=== PATIENT | male | born 1950 | race Caucasian/White ===

== ENCOUNTER 2021-03-14 14:08 | Inpatient (IN) | payer MEDICARE, OTHER ==
[~2021-03-14] VITALS: Ht 170.2 cm; Wt 78.7 kg
[2021-03-14] MEDS ORDERED: FURO20TA2 PO (14:19)
[2021-03-14] MEDS ORDERED: TRAZ-252 PO (14:19)
[2021-03-14] MEDS ORDERED: SING4CHW9 PO (14:19)
[2021-03-14] MEDS ORDERED: PRAV10TA3 PO (14:19)
[2021-03-14] MEDS ORDERED: SPIR100T3 PO (14:19)
[2021-03-14] MEDS ORDERED: HYDR-643 PO (14:19)
[2021-03-14] MEDS ORDERED: NADO20TA PO (14:19)
[2021-03-14] MEDS ORDERED: CITA20TA6 PO (14:19)
[2021-03-14] MEDS ORDERED: PANT20TA6 PO (14:19)
[2021-03-14] MEDS ORDERED: ACETAMINOPHEN TAB 650MG DOSE (2X325MG) PO ONE (15:10)
[2021-03-14 15:24] LABS: HEMATOCRIT 29.6 % (42.0-52.0); HEMOGLOBIN 8.6 g/dl (13.5-17.5); MEAN CORPUSCULAR HEMOGLOBIN 21.4 pg (27.0-33.0); MEAN CORPUSCULAR HGB CONC 29.1 g/dl (32.0-36.5); MEAN CORPUSCULAR VOLUME 73.6 fl (80.0-96.0); RED BLOOD COUNT 4.02 10^6/uL (4.30-6.10); WHITE BLOOD COUNT 3.9 10^3/uL (4.0-10.0)
--- NOTE | 2021-03-14 15:41 | REP ---
INDICATION: 70yo M GLF, landed on side, doesn't think he struck head COMPARISON: None. TECHNIQUE: Axial noncontrast images from the skull base to the thoracic inlet with coronal reformations. This CT examination was performed using the following dose reduction techniques: Automated exposure control, adjustment of mA and/or kv according to the patient's size, and use of iterative reconstruction technique. FINDINGS: Atrophy with periventricular leukomalacia and microvascular ischemic changes are appreciated. The ventricles and sulci are symmetric. Hugo-white differentiation is maintained. There is no evidence for acute intracranial hemorrhage, mass/mass effect, pathology or infarction. No extra-axial fluid collection. Calvarium is intact. Paranasal sinuses and mastoid air cells are clear. IMPRESSION: Atrophy and microvascular ischemic changes. No acute intracranial hemorrhage, infarction, or mass/mass effect. <Electronically signed by Brendan Johnson > 03/14/21 [id number]
[2021-03-14 15:46] LABS: CALCIUM LEVEL 9.9 MG/DL (8.8-10.2); CREATININE FOR GFR 1.75 MG/DL (0.70-1.30); GLOMERULAR FILTRATION RATE 41.2 (>42)
--- NOTE | 2021-03-14 15:46 | REP ---
INDICATION: 70yo M GLF, now w/ L sided rib pain, TTP, eval for rib fx COMPARISON: None TECHNIQUE: Axial noncontrast images from the thoracic inlet to the upper abdomen with coronal and sagittal reformations. This CT examination was performed using the following dose reduction techniques: Automated exposure control, adjustment of mA and/or kv according to the patient's size, and use of iterative reconstruction technique. FINDINGS: The bilateral lung thornton are well aerated and essentially clear. No consolidation/contusion, effusion, or pneumothorax. Tracheobronchial tree is patent. The mediastinum demonstrates large paraesophageal gastric hiatal hernia. No significant adenopathy. Age-related atherosclerotic changes to the thoracic aorta and coronary arteries noted without aortic aneurysm or cardiomegaly. No pericardial effusion. There is no evidence for acute rib fracture. Few old healed right rib fractures are identified Sagittal images demonstrate mild compression deformities involving T6 and T9 of indeterminate age. IMPRESSION: No acute mediastinal or pleuroparenchymal trauma/injury or acute pathology. Moderate to large paraesophageal gastric hiatal hernia No evidence for acute rib fracture. Mild compression deformities at T6 and T9 of indeterminate age. <Electronically signed by Brendan Johnson > 03/14/21 [id number]
[2021-03-14 15:51] LABS: PLATELET COUNT, AUTOMATED 66 10^3/uL (150-450)
[2021-03-14] MEDS ORDERED: NS 1,000 ML IV ONE (16:40)
[2021-03-14 16:54] LABS: LYMPH % 11.8 % (24.0-44.0); NEUTROPHILS % 75.1 % (36.0-66.0)
[2021-03-14 16:55] LABS: BASO % 0.5 % (0.0-1.0); EOS # 0.1 10^3/uL (0.0-0.5); LYMPH # 0.5 10^3/uL (1.5-5.0); MONO # 0.4 10^3/uL (0.0-0.8); MONO % 10.3 % (2.0-8.0)
--- NOTE | 2021-03-14 16:59 | ECGEPIP ---
[facility] - ED Test Date: 2021-03-14 Pat Name: HUMBERTO CROSS Department: Room: - Gender: Male Patient Representative: LR : 1950 Requested By: AMULIK Harper Order Number: [id number] Reading MD: Cara Herrera Measurements Intervals [place] Rate: 42 P: 85 MN: 148 QRS: 42 QRSD: 100 T: 48 QT: 488 QTc: 407 Interpretive Statements Marked sinus bradycardia Low voltage QRS Septal infarct , age undetermined NSTTW abnormalities No prior Electronically Signed on 03-14-2021 16:59:29 EST by Cara Herrera
[2021-03-14 17:05] LABS: ALBUMIN 3.7 GM/DL (3.2-5.2); BILIRUBIN,DIRECT 0.2 MG/DL (0.0-0.2); BILIRUBIN,TOTAL 0.6 MG/DL (0.2-1.0); THYROID STIMULATING HORMONE 2.96 uIU/ML (0.358-3.740); TOTAL PROTEIN 7.5 GM/DL (6.4-8.2)
[2021-03-14 17:20] LABS: CHLORIDE,RANDOM URINE < 10 MEQ/L; CREATININE,RANDOM URINE 70.1 MG/DL; SODIUM,RANDOM URINE 17 MEQ/L
[2021-03-14 17:21] LABS: INR 1.27; PROTHROMBIN TIME 16.3 SECONDS (12.7-14.5)
[2021-03-14 17:22] LABS: PARTIAL THROMBOPLASTIN TIME 35.9 SECONDS (25.9-37.0)
[2021-03-14 17:29] LABS: CK-MB VALUE MASS < 1.0 NG/ML (<3.6); CPK CREATINE PHOSPHOKINASE 71 U/L (39-308); MB/CK RELATIVE INDEX 1.41 (< OR =4)
[2021-03-14 17:40] LABS: RSV AMPLIFICATION NEGATIVE (NEGATIVE)
--- NOTE | 2021-03-14 18:31 | HPEPDOC ---
[facility] Medical History & Physical Date of Admission Mar 14, 2021 Date of Service: Mar 14, 2021 History and Physical CHIEF COMPLAINT: "Chest pain" HISTORY OF PRESENT ILLNESS: 70-year-old male with a past medical history of alcoholic cirrhosis, anemia, thrombocytopenia, spleen infarction, COPD, obstructive sleep apnea, diabetes mellitus, GERD, hypertension presented to the emergency room department with complaints of left-sided chest pain. He is a poor historian and was accompanied by his son. Son reports patient fell on Thanksgiving, which was unwitnessed and unclear why and since has been complaining of left-sided chest pain that is reproducible with movement. When asked patient about chest pain, he could not identify any aggravating factors but physically showed moving his left arm which aggravated the pain as well as palpating over the fifth midclavicular rib region. He could not recollect events around the fall. At this junction, he denied shortness of breath, abdominal pain, nausea, vomiting, problems with urination or bowel movements. In the emergency room department he was noted to have WBC count of 3.9, hemoglobin of 8.6, platelet count of 66. His sodium was 128, BUN/creatinine was 44/1.75. He was admitted for a chest pain rule out as well as pancytopenia acute kidney injury. PAST MEDICAL HISTORY: As above PAST SURGICAL HISTORY: Patient or son could recall SOCIAL HISTORY: Past drinker. Denies smoking and recreational drug use FAMILY HISTORY: Could not recall ALLERGIES: Please see below. REVIEW OF SYSTEMS: 10 point review of system was negative except for what is noted in the HPI HOME MEDICATIONS: Please see below. PHYSICAL EXAMINATION: VITAL SIGNS: Please see below General: Lying in bed, no acute distress Head/Neck/Throat: Trachea midline, mucous membranes moist Eyes: Sclera anicteric, no erythema or discharge appreciated bilaterally Thorax: Normal respiratory effort on room air, lungs clear to auscultation bilaterally, no wheezes/rales/rhonchi Cardiovascular: Normal rate, regular rhythm, normal S1, S2; no S3, S4, rubs/gallops/murmurs Abdomen: Bowel sounds present, soft/nontender/nondistended Genitourinary: No CVA tenderness, no Ryan in place Musculoskeletal: Moving all extremities, no edema Skin: Warm, dry Neurologic: Awake, alert, oriented to self, place. He is forgetful and unable to call recent events. LABORATORY DATA: See below. IMAGING: Please see imaging section MICROBIOLOGY: Please see below. ASSESSMENT/PLAN: 70-year-old male presented emergency department with complaints of reproducible chest pain following a fall. He was admitted for further work-up of his abnormal lab work. #Atypical chest pain -EKG showed sinus bradycardia. Initial troponin was negative, continue to trend. #Fall -Unclear etiology; ?bradycardia while on bb. Continue to monitor on tele. Follow up on echocardiogram. Pt/ot. #Pancytopenia -Unknown baseline, suspect this is secondary to his underlying cirrhosis. continue to monitor for stability. No indications for transfusions of prbc or platelets at this time. #Acute kidney injury -Unknown baseline creatinine. However, suspect hepatorenal syndrome. Avoid nephrotoxic medications including furosemide and spironolactone; until baseline creatinine is established. Follow-up on renal ultrasound #Electrolyte abnormalities -Slightly hyponatremic, likely due to his underlying cirrhosis and being on diuretics. IV fluid appears to be on the dry side. #Cirrhosis -Continue lactulose. Hold furosemide and spironolactone tonight to ensure renal function remained stable. #Hyperammonemia -As per son, patient is baseline. Continue with lactulose titrate to 3 bowel movements per day. #Sinus bradycardia -Continue monitor on telemetry as well as clinically for symptoms. Nadolol dose may need to be reduced on d/c. #COPD -No signs of acute exacerbation. Reviewing medication list, patient is only taking montelukast. #DVT prophylaxis -Heparin subcu Vital Signs Vital Signs Date Time Temp Pulse Resp B/P (MAP) Pulse Ox O2 Delivery O2 Flow Rate FiO2 03/14/21 17:08 46 100 Room Air 03/14/21 14:08 97.8 20 105/46 (65) Laboratory Data Labs 24H Laboratory Tests 2 03/14/21 14:54: Immature Granulocyte % (Auto) 0.3, Neutrophils (%) (Auto) 75.1H, Lymphocytes (%) (Auto) 11.8L, Monocytes (%) (Auto) 10.3H, Eosinophils (%) (Auto) 2.0, Basophils (%) (Auto) 0.5, Neutrophils # (Auto) 3.0, Lymphocytes # (Auto) 0.5L, Monocytes # (Auto) 0.4, Eosinophils # (Auto) 0.1, Basophils # (Auto) 0.0, Immature Granulocyte # (Auto) 0.0, Nucleated Red Blood Cells % (auto) 0.0, Platelet Estimate , Immature Platelet Fraction 7.1, Anion Gap 8, Glomerular Filtration Rate 41.2L, Calcium Level 9.9, Total Bilirubin 0.6, Direct Bilirubin 0.2, Aspartate Amino Transf (AST/SGOT) 17, Alanine Aminotransferase (ALT/SGPT) 22, Alkaline Phosphatase 76, Total Protein 7.5, Albumin 3.7, Albumin/Globulin Ratio 1.0, Thyroid Stimulating Hormone (TSH) 2.960 03/14/21 16:33: Prothrombin Time 16.3H, Prothromb Time International Ratio 1.27, Activated Partial Thromboplast Time 35.9, Ammonia 36H, Total Creatine Kinase 71, Creatine Kinase MB < 1.0, Creatine Kinase MB Relative Index 1.41, Troponin I High Sensitivity 8.0 03/14/21 16:51: Urine Random Creatinine 70.1, Urine Random Sodium 17, Urine Random Chloride < 10 03/14/21 16:56: Coronavirus (COVID-19)(PCR) NEGATIVE, Influenza Type A (RT-PCR) NEGATIVE, Influenza Type B (RT-PCR) NEGATIVE, Respiratory Syncytial Virus (PCR) NEGATIVE CBC/BMP Laboratory Tests 03/14/21 14:54 Home Medications Scheduled Citalopram Hydrobromide (Citalopram HBr) 20 Mg Tablet, 20 MG PO DAILY Furosemide (Furosemide) 40 Mg Tablet, 40 MG PO DAILY Montelukast Sodium (Montelukast Sodium) 10 Mg Tablet, 10 MG PO QHS Multivit,Calc,Mins/Iron/Folic (Thera-M Tablet) 1 Each Tablet, 1 TAB PO DAILY Nadolol (Nadolol) 40 Mg Tablet, 40 MG PO DAILY Pantoprazole Sodium (Pantoprazole Sodium) 40 Mg Tablet.dr, 40 MG PO BID Pravastatin Sodium (Pravastatin Sodium) 40 Mg Tablet, 40 MG PO QHS Spironolactone (Spironolactone) 100 Mg Tablet, 100 MG PO DAILY Trazodone HCl (Trazodone HCl) 150 Mg Tablet, 150 MG PO QHS Scheduled PRN Hydroxyzine HCl (Hydroxyzine HCl) 10 Mg Tablet, 20 MG PO TID PRN for ITCHING Lactulose (Lactulose) 10 Gm/15 Ml Solution, 20 ML PO BID PRN for CONSTIPATION Allergies Coded Allergies: cephradine (Verified Allergy, Unknown, 03/14/21) A-FIB/CHADSVASC A-FIB History Current/History of A-Fib/PAF?: No ADAM BERGER M.D. Mar 14, 2021 18:31
[2021-03-14] MEDS: NS 1,000 ML IV SCH (19:00)
--- OUTSIDE RECORDS SUMMARY | 2021-03-14 19:03 | CCD ---
Author Author [facility] Organization [facility] Address Unknown Phone Unavailable Care Team Providers Care Order Schedule Clerk Name Role Phone JAMI HOLM J KAYLEE PA-C Unavailable Unavailable PICKERAL JR, J KAYLEE PA-C Unavailable Unavailable PICKERAL JR, J KAYLEE PA-C Unavailable Unavailable PICKERAL JR, J KAYLEE PA-C Unavailable Unavailable PICKERAL JR, J KAYLEE PA-C Unavailable Unavailable PICKERAL JR, J KAYLEE PA-C Unavailable Unavailable PICKERAL JR, J KAYLEE PA-C Unavailable Unavailable PICKERAL JR, J KAYLEE PA-C Unavailable Unavailable PICKERAL JR, J KAYLEE PA-C Unavailable Unavailable PICKERAL JR, J KAYLEE PA-C Unavailable Unavailable PICKERAL JR, J KAYLEE PA-C Unavailable Unavailable PICKERAL JR, J KAYLEE PA-C Unavailable Unavailable PICKERAL JR, J KAYLEE PA-C Unavailable Unavailable PICKERAL JR, J KAYLEE PA-C Unavailable Unavailable PICKERAL JR, J KAYLEE PA-C Unavailable Unavailable PICKERAL JR, J KAYLEE PA-C Unavailable Unavailable PICKERAL JR, J KAYLEE PA-C Unavailable Unavailable PICKERAL JR, J KAYLEE PA-C Unavailable Unavailable PICKERAL JR, J KAYLEE PA-C Unavailable Unavailable PICKERAL JR, J KAYLEE PA-C Unavailable Unavailable PICKERAL JR, J KAYLEE PA-C Unavailable Unavailable PICKERAL JR, J KAYLEE PA-C Unavailable Unavailable PICKERAL JR, J KAYLEE PA-C Unavailable Unavailable PICKERAL JR, J KAYLEE PA-C Unavailable Unavailable PICKERAL JR, J KAYLEE PA-C Unavailable Unavailable PICKERAL JR, J KAYLEE PA-C Unavailable Unavailable PICKERAL JR, J KAYLEE PA-C Unavailable Unavailable Re-disclosure Warning The records that you are about to access may contain information from federally-assisted alcohol or drug abuse programs. If such information is present, then the following federally mandated warning applies: This information has been disclosed to you from records protected by federal confidentiality rules (42 CFR part 2). The federal rules prohibit you from making any further disclosure of this information unless further disclosure is expressly permitted by the written consent of the person to whom it pertains or as otherwise permitted by 42 CFR part 2. A general authorization for the release of medical or other information is NOT sufficient for this purpose. The Federal rules restrict any use of the information to criminally investigate or prosecute any alcohol or drug abuse patient.The records that you are about to access may contain highly sensitive health information, the redisclosure of which is protected by Article 27-F of the [facility] Public Health law. If you continue you may have access to information: Regarding HIV / AIDS; Provided by facilities licensed or operated by the [facility] Office of Mental Health; or Provided by the [facility] Office for People With Developmental Disabilities. If such information is present, then the following [facility] mandated warning applies: This information has been disclosed to you from confidential records which are protected by state law. State law prohibits you from making any further disclosure of this information without the specific written consent of the person to whom it pertains, or as otherwise permitted by law. Any unauthorized further disclosure in violation of state law may result in a fine or correction sentence or both. A general authorization for the release of medical or other information is NOT sufficient authorization for further disc losure. Encounters Encounter Providers Location Date Indications Data Source(s ) Outpatient Attender: KAYLEE simental 03/14/2021 08:25:00 AM EST [facility] ([facility], [facility]) Medications Medication Brand Name Start Date Product Form Dose Route Admi nistrative Instructions Pharmacy Instructions Status Indications Reaction Description Data Source(s) 240 mcg/0.7 mL 02/07/2021 12:00:00 AM EDT syringe 0 DIRECTED LEFT ARM DIRECTED LEFT ARM SOLD: 02/07/2021 [facility] Insurance Providers Payer name Policy type / Coverage type Policy ID Covered democrat ID Covered democrat's relationship to alfaro Policy Alfaro Plan Information FOR LIFE [id number] SP [id number] MEDICARE [id number] [facility] [id number] SP [id number] DO NOT USE [id number] SP [id number] Problems, Conditions, and Diagnoses No Information Surgeries/Procedures Procedure Description Date Indications Data Source(s) ECG ROUTINE ECG W/LEAST 12 LDS W/I&R 03/14/2021 12:00: 00 AM EST [facility] ([facility], [facility]) OFFICE OUTPATIENT NEW 45 MINUTES 03/14/2021 12:00:00 A M EST [facility] ([facility] [place], [facility]) Results ID Date Data Source [id number] 02/24/2021 12:00:00 AM EST [facility] Name Value Range Interpretation Code Description Data Abigail rce(s) Supporting Document(s) SARS-CoV2 Rapid Antigen Negative [facility] This lab was ordered by [facility] and reported by [facility] [place]. Procedure Social History No Information Vital Signs ID Date Data Source UNK Name Value Range Interpretation Code Description Data Source(s) Systolic blood pressure 118 mm[Hg] 118 mm[Hg] [facility] ([facility] [place], [facility]) Diastolic blood pressure 62 mm[Hg] 62 mm[Hg] [facility] ([facility], [facility]) Heart rate 40 /min 40 /min [facility] ([facility] [place], [facility]) Respiratory rate 16 /min 16 /min [facility] ( [facility], [facility]) Oxygen saturation in Arterial blood by Pulse oximetry 98 % 98 % [facility] ([facility], [facility]) Body temperature 98.2 [degF] 98.2 [degF] [facility] ([facility], [facility]) Body weight 157.00 [lb_av] 157.00 [lb_av] [facility] ([facility], [facility]) Body height 68 [in_i] 68 [in_i] [facility] ([facility], [facility]) 5'8" Body mass index (BMI) [Ratio] 23.9 kg/m2 23.9 k g/m2 [facility] ([facility], [facility])
[2021-03-14] MEDS ORDERED: FURO40TA2 PO (19:08)
[2021-03-14] MEDS ORDERED: TRAZ1TAB14 PO (19:08)
[2021-03-14] MEDS ORDERED: MONT10TA10 PO (19:08)
[2021-03-14] MEDS ORDERED: LACT20EL PO (19:08)
[2021-03-14] MEDS ORDERED: PRAV40TA2 PO (19:08)
[2021-03-14] MEDS ORDERED: NADO40TA PO (19:08)
[2021-03-14] MEDS ORDERED: PANT-23 PO (19:08)
[2021-03-14] MEDS ORDERED: THERTAB21 PO (19:08)
[2021-03-14] MEDS ORDERED: HOME MED LIST COMPLETE! XX SCH (19:10)
[2021-03-14] MEDS ORDERED: PRAVASTATIN 10 MG TAB PO SCH (21:00)
[2021-03-14] MEDS ORDERED: LACTULOSE 20 GM/30 ML SYRUP UD PO SCH (21:00)
[2021-03-14] MEDS ORDERED: hydrOXYzine 10 MG TAB PO SCH (21:00)
[2021-03-14] MEDS ORDERED: traZODone 50 MG TAB PO SCH (21:00)
[2021-03-14] MEDS: DICLOFENAC EPOLAMINE 1.3 % PATCH TOP SCH (21:00)
[2021-03-14] MEDS: LACTULOSE 20 GM/30 ML SYRUP UD PO SCH (21:19)
[2021-03-14] MEDS: traZODone 50 MG TAB PO SCH (21:20)
[2021-03-14] MEDS: PANTOPRAZOLE 40MG TAB (PROTONIX) PO SCH (21:20)
[2021-03-14] MEDS: PRAVASTATIN 20 MG TAB PO SCH (21:21)
[2021-03-14] MEDS ORDERED: HEPARIN SOD (PORCINE) 5000UNITS/ML 1ML VIAL/SYRINGE SC SCH (22:00)
[2021-03-15 07:17] LABS: HEMATOCRIT 26.8 % (42.0-52.0); HEMOGLOBIN 7.6 g/dl (13.5-17.5); MEAN CORPUSCULAR HEMOGLOBIN 21.3 pg (27.0-33.0); MEAN CORPUSCULAR HGB CONC 28.4 g/dl (32.0-36.5); MEAN CORPUSCULAR VOLUME 75.1 fl (80.0-96.0); RED BLOOD COUNT 3.57 10^6/uL (4.30-6.10); WHITE BLOOD COUNT 2.2 10^3/uL (4.0-10.0)
[2021-03-15 07:25] LABS: PLATELET COUNT, AUTOMATED 52 10^3/uL (150-450)
[2021-03-15] MEDS: NS 1,000 ML IV SCH ×2 (07:27→23:48)
[2021-03-15 07:42] LABS: ALBUMIN 3.3 GM/DL (3.2-5.2); BILIRUBIN,TOTAL 0.5 MG/DL (0.2-1.0); CALCIUM LEVEL 9.8 MG/DL (8.8-10.2); CREATININE FOR GFR 1.53 MG/DL (0.70-1.30); GLOMERULAR FILTRATION RATE 48.1 (>42); MAGNESIUM LEVEL 2.4 MG/DL (1.8-2.4); PHOSPHORUS LEVEL 3.2 MG/DL (2.5-4.9); POTASSIUM SERUM 4.7 MEQ/L (3.5-5.1); TOTAL PROTEIN 6.7 GM/DL (6.4-8.2)
[2021-03-15 07:46] LABS: FERRITIN 14 NG/ML (26-388); IRON (FE) 14 UG/DL (65-175); PERCENT SATURATION 3.1 % (19.7-50.0); TOTAL IRON BINDING CAPACITY 454 UG/DL (250-450)
[2021-03-15 08:06] LABS: INR 1.31; PROTHROMBIN TIME 16.7 SECONDS (12.7-14.5)
--- NOTE | 2021-03-15 08:06 | REP ---
INDICATION: sedrick COMPARISON: None TECHNIQUE: Real time roberto scale ultrasound examination using curved array transducer. FINDINGS: Bilateral kidneys are normal in contour, size, echogenicity, and reniform shape. No hydronephrosis, nephrolithiasis, cystic or renal mass lesion. No perinephric fluid collection. Bladder is grossly unremarkable. Right kidney measures 9.6 x 5.5 x 5.7 cm. Left kidney measures 10.1 x 5.0 x 4.4 cm. IMPRESSION: 1. Normal renal ultrasound. No hydronephrosis. <Electronically signed by Brendan Johnson > 03/15/21 0802
[2021-03-15 08:07] LABS: PARTIAL THROMBOPLASTIN TIME 40.4 SECONDS (25.9-37.0)
[2021-03-15] MEDS ORDERED: FUROSEMIDE 20 MG TAB PO SCH (09:00)
[2021-03-15] MEDS ORDERED: SPIRONOLACTONE 50 MG TAB PO SCH (09:00)
[2021-03-15] MEDS ORDERED: PANTOPRAZOLE 20 MG TAB PO SCH (09:00)
[2021-03-15] MEDS: LACTULOSE 20 GM/30 ML SYRUP UD PO SCH ×5 (09:00→20:23)
[2021-03-15] MEDS: PANTOPRAZOLE 40MG TAB (PROTONIX) PO SCH ×2 (09:11→20:23)
[2021-03-15] MEDS: MULTIVITAMINS/MINERALS THERAP 1 TAB PO SCH (09:11)
[2021-03-15] MEDS: CitaloPRAM (CeleXA) 20 MG TAB PO SCH (09:11)
[2021-03-15] MEDS: MONTELUKAST 10 MG TAB PO SCH (09:11)
[2021-03-15] MEDS ORDERED: IRON SUCROSE 100MG 5ML VIAL (J1756 PER 1MG) IV ONE (09:25)
--- NOTE | 2021-03-15 09:55 | IPNPDOC ---
Text Note Date of Service The patient was seen on 03/15/21. NOTE Subjective: 70-year-old male presented emergency room department with complaints of atypical chest pain. However, he was noted to be pancytopenic and have kidney injury and therefore was admitted for further work-up. Patient was seen and examined at bedside this morning. He reported having pain over the left chest wall which is reproducible with movement, however it is i ntermittent. Overnight, patient had no significant events on telemetry. Review of systems: 10 point review of system was negative except for what is noted in the HPI Physical exam: General: Lying in bed, no acute distress Head/Neck/Throat: Trachea midline, mucous membranes moist Eyes: Sclera anicteric, no erythema or discharge appreciated bilaterally Thorax: Normal respiratory effort on room air, lungs clear to auscultation bilaterally, palpation of left chest wall elicits tenderness Cardiovascular: Normal rate, regular rhythm, normal S1, S2; no S3, S4, rubs/gallops/murmurs Abdomen: Bowel sounds present, soft/nontender/nondistended Genitourinary: No CVA tenderness, no Ryan in place Musculoskeletal: Moving all extremities, no edema Skin: Warm, dry Neurologic: Awake, alert, oriented to self, place. He is forgetful and unable to call recent events. Labs: See below Imaging: Please see imaging section Assessment/plan: #Atypical chest pain -EKG showed sinus bradycardia. Troponin trend has been negative. Musculoskeletal in nature. #Fall -Unclear etiology; ?bradycardia while on bb. Continue to monitor on tele. Follow up on echocardiogram. Pt/ot. #Pancytopenia -Unknown baseline, suspect this is secondary to his underlying cirrhosis. -Leukopenia, no signs of acute infection at this time and can be monitored. -Thrombocytopenia, no signs of bleeding continue to monitor platelets. -Microcytic anemia, iron panel consistent with iron deficiency. Follow-up on reticulocyte count. Also will check vitamin B12 and folate. He will receive IV transfusion. Occult blood test has been ordered. -Hematology consulted #Acute kidney injury -Unknown baseline creatinine. Creatinine is improving, with IV fluids. Suspect component of hepatorenal syndrome. Avoid nephrotoxic medications including furosemide and spironolactone; until baseline creatinine is established. Renal ultrasound is unremarkable. #Electrolyte abnormalities -Slightly hyponatremic, likely due to his underlying cirrhosis and being on diuretics. #Cirrhosis -Continue lactulose. Hold furosemide and spironolactone due to renal impairment. He will need outpatient follow-up for evaluation of liver transplant, as well as appropriate screening for hepatocellular carcinoma. #Hyperammonemia -As per son, patient is baseline. Continue with lactulose titrate to 3 bowel movements per day. #Sinus bradycardia -Continue monitor on telemetry as well as clinically for symptoms. Nadolol dose may need to be reduced on d/c. #COPD -No signs of acute exacerbation. Reviewing medication list, patient is only taking montelukast. #DVT prophylaxis -Fondaparinux VS,Fishbone, I+O VS, Fishbone, I+O Laboratory Tests 03/14/21 14:54 03/15/21 06:56 Vital Signs Date Time Temp Pulse Resp B/P (MAP) Pulse Ox O2 Delivery O2 Flow Rate FiO2 03/15/21 07:30 96.4 44 16 98/45 (62) 100 Room Air ADAM BERGER M.D. Mar 15, 2021 09:55
[2021-03-15 10:32] VITALS: BP 117/57
[2021-03-15 11:14] LABS: LDH LACTATE DEHYDROGENASE 123 U/L (87-241)
[2021-03-15 11:26] LABS: VITAMIN B12 LEVEL 508 PG/ML (247-911)
[2021-03-15 11:34] LABS: FOLATE > 24.0 NG/ML (>5.4)
[2021-03-15] MEDS: DICLOFENAC EPOLAMINE 1.3 % PATCH TOP SCH ×2 (11:47→20:24)
[2021-03-15 11:56] VITALS: BP 135/59
[2021-03-15] MEDS ORDERED: IRON SUCROSE 300 MG in NS 250 ML OVER 90 MIN. IV ONE (12:00)
[2021-03-15 17:00] VITALS: BP 115/52
--- NOTE | 2021-03-15 17:49 | CR.PDOC ---
General Date of Consultation: Mar 15, 2021 Consultation REASON FOR CONSULTATION/CHIEF COMPLAINT: Pancytopenia HISTORY OF PRESENT ILLNESS: 70-year-old male presented to the emergency room department with complaints of left-sided chest pain related to fall. From inpatient progress note: In the emergency room department he was noted to have WBC count of 3.9, hemoglobin of 8.6, platelet count of 66. He has chronic liver cirrhosis, unsure of how long. He denies any pain currently. Denies black or bloody stool. He is having trouble recalling information. Denies bleeding problems, such as hemorrhoids. His breathing is good. His activity is limiting to indoors. Uses walker as needed. His appetite is satisfactory. Normal bowel movements. Yesterday ammonia levels were high, today normal. Possibly causing confusion. Peripheral smear from 03/15/2021 showed Hypochromic microcytic anemia and abnormal serum iron studies, consistent with iron deficiency anemia. Poikilocytosisis minimal. No platelet aggregates are noted. No blasts are noted. Hx of cirrhosis, which may contribute to pancytopenia, due to peripheral sequestration. PAST MEDICAL HISTORY: 1. alcoholic cirrhosis, anemia, thrombocytopenia, spleen infarction, COPD, obstructive sleep apnea, diabetes mellitus, GERD, hypertension FAMILY HISTORY: No recollection of family history SOCIAL HISTORY: Significant alcohol consumption in past Lives with and son Has 3 children REVIEW OF SYSTEMS: Described in HPI PHYSICAL EXAMINATION: VITAL SIGNS: Please see below. GENERAL APPEARANCE: no acute distress, palor HEENT: Trachea midline, mucous membranes moist RESPIRATORY: lungs clear to auscultation bilaterally CARDIOVASCULAR: Normal rate, regular rhythm ABDOMEN: Soft/Nontender EXTREMITIES: No gross deformities, no edema NEUROLOGICAL: Awake, alert, unable to answer some questions ASSESSMENT/PLAN: This is a 70-year-old male consulted for pancytopenia. 1. 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 He has a chronic GI bleed causing RAMSES. One dose of parenteral iron was given. He should be evaluated by GI. He will be followed in our outpatient setting, he should be given appointment before his discharge. Vital Signs/I&O Vital Signs Date Time Temp Pulse Resp B/P (MAP) Pulse Ox O2 Delivery O2 Flow Rate FiO2 03/15/21 11:56 97.4 03/15/21 11:56 51 18 135/59 (84) 100 Room Air Laboratory Data Labs 24H Laboratory Tests 2 03/14/21 16:51: Urine Random Creatinine 70.1, Urine Random Sodium 17, Urine Random Chloride < 10 03/14/21 16:56: Coronavirus (COVID-19)(PCR) NEGATIVE, Influenza Type A (RT-PCR) NEGATIVE, Influenza Type B (RT-PCR) NEGATIVE, Respiratory Syncytial Virus (PCR) NEGATIVE 03/14/21 19:55: Troponin I High Sensitivity 10.0 03/15/21 06:56: Reticulocyte # (auto) 59.3, Nucleated Red Blood Cells % (auto) 0.0, Differential Slide Review Report, Peripheral Blood Smear Path Consult PERIPHERAL SMEAR, Percent Reticulocyte Count 1.7H, Reticulocyte Hemoglobin Equivalent 21.2L, Prothrombin Time 16.7H, Prothromb Time International Ratio 1.31, Activated Partial Thromboplast Time 40.4H, Anion Gap 6L, Glomerular Filtration Rate 48.1, Calcium Level 9.8, Phosphorus Level 3.2, Magnesium Level 2.4, Iron Level 14L, Total Iron Binding Capacity 454H, Transferrin % Saturation 3.1L, Ferritin 14L, Total Bilirubin 0.5, Aspartate Amino Transf (AST/SGOT) 16, Alanine Aminotransferase (ALT/SGPT) 21, Alkaline Phosphatase 68, Ammonia 24, Lactate Dehydrogenase 123, Total Protein 6.7, Albumin 3.3, Albumin/Globulin Ratio 1.0, Vitamin B12 Level 508, Folate > 24.0 CBC/BMP Laboratory Tests 03/15/21 06:56 Allergies Coded Allergies: cephradine (Verified Allergy, Unknown, 03/14/21) Home Medications Scheduled Citalopram Hydrobromide (Citalopram HBr) 20 Mg Tablet, 20 MG PO DAILY, (Reported) Furosemide (Furosemide) 40 Mg Tablet, 40 MG PO DAILY, (Reported) Montelukast Sodium (Montelukast Sodium) 10 Mg Tablet, 10 MG PO QHS, (Reported) Multivit,Calc,Mins/Iron/Folic (Thera-M Tablet) 1 Each Tablet, 1 TAB PO DAILY, (Reported) Nadolol (Nadolol) 40 Mg Tablet, 40 MG PO DAILY, (Reported) Pantoprazole Sodium (Pantoprazole Sodium) 40 Mg Tablet.dr, 40 MG PO BID, (Reported) Pravastatin Sodium (Pravastatin Sodium) 40 Mg Tablet, 40 MG PO QHS, (Reported) Spironolactone (Spironolactone) 100 Mg Tablet, 100 MG PO DAILY, (Reported) Trazodone HCl (Trazodone HCl) 150 Mg Tablet, 150 MG PO QHS, (Reported) Scheduled PRN Hydroxyzine HCl (Hydroxyzine HCl) 10 Mg Tablet, 20 MG PO TID PRN for ITCHING, (Reported) Lactulose (Lactulose) 10 Gm/15 Ml Solution, 20 ML PO BID PRN for CONSTIPATION, (Reported) Scribe Attestation I personally Scribed for Dr Muñoz on 03/15/21 at 16:51 . Electronically Submitted by Roya Jc, Roya Adams Mar 15, 2021 16:52
[2021-03-15 19:57] VITALS: BP 108/53
[2021-03-15] MEDS: traZODone 50 MG TAB PO SCH (20:23)
[2021-03-15] MEDS: PRAVASTATIN 20 MG TAB PO SCH (20:30)
[2021-03-16] VITALS (10 sets, daily range): BP systolic 101–132; BP diastolic 47–62
[2021-03-16 06:11] LABS: HEMATOCRIT 23.2 % (42.0-52.0); MEAN CORPUSCULAR HEMOGLOBIN 21.7 pg (27.0-33.0); MEAN CORPUSCULAR HGB CONC 28.9 g/dl (32.0-36.5); MEAN CORPUSCULAR VOLUME 75.1 fl (80.0-96.0); RED BLOOD COUNT 3.09 10^6/uL (4.30-6.10)
[2021-03-16 06:13] LABS: HEMOGLOBIN 6.7 g/dl (13.5-17.5); PLATELET COUNT, AUTOMATED 53 10^3/uL (150-450)
[2021-03-16 06:44] LABS: ALBUMIN 2.8 GM/DL (3.2-5.2); BILIRUBIN,TOTAL 0.3 MG/DL (0.2-1.0); CREATININE FOR GFR 1.43 MG/DL (0.70-1.30); MAGNESIUM LEVEL 1.8 MG/DL (1.8-2.4); PHOSPHORUS LEVEL 2.2 MG/DL (2.5-4.9); POTASSIUM SERUM 5.1 MEQ/L (3.5-5.1)
--- NOTE | 2021-03-16 08:56 | ECHO ---
ECHOCARDIOGRAM DATE OF PROCEDURE: 03/15/2021 Age: Gender: M Height: 170 cm Weight: 71 kg REFERRING PHYSICIAN: Dr. Stone Steve INDICATION: Abnormal EKG MEASUREMENTS: IVS: 0.39 LV: 3.1 LVPW: 0.9 LA: 3.9 Aorta: 2.6 IVC: 1.7 Mitral E wave velocity is 133; A wave 106 E prime septal: 6.7 E prime lateral: 7.1 FINDINGS: This study is of adequate technical quality. Underlying sinus rhythm. Left ventricle has normal size and systolic function with estimated left ventricular ejection fraction (LVEF) 65% to 70%. I do not appreciate any segmental wall motion abnormalities. Right ventricle also appears to have normal size and systolic function. Left atrium is mildly enlarged. Right atrium appears normal. Aortic valve has 3 cusps and is mildly sclerotic but mobility is preserved. There are also mild degenerative abnormalities of mitral valve but mobility of leaflets is preserved. Tricuspid valve appears normal. Pulmonic valve was not well visualized. No pericardial effusion is noted. Inferior vena cava has normal size and appropriately collapses with inspiration indicative of normal central venous pressure. Aortic root is normal. Aortic arch and abdominal aorta were not well visualized. Doppler interrogation reveals on significant aortic stenosis or insufficiency. The same applies for mitral valve. There is mild tricuspid insufficiency. Calculated pulmonary artery pressure is in the 30s corresponding to mild pulmonary hypertension. Mitral inflow pattern and tissue Doppler imaging of mitral annulus revealed grade 2 diastolic dysfunction. CONCLUSIONS: 1. Study is of acceptable technical quality; underlying sinus rhythm. 2. Normal left ventricle (LV) size with normal left ventricular (LV) systolic function and grade 2 diastolic dysfunction. 3. No hemodynamically significant valvular disease. 4. Probably normal central venous pressure and mild pulmonary hypertension. MTDD
[2021-03-16] MEDS ORDERED: FONDAPARINUX SODIUM 2.5 MG/0.5 ML SYR (J1652 PER 0.5MG) SC SCH (09:00)
[2021-03-16] MEDS: LACTULOSE 20 GM/30 ML SYRUP UD PO SCH ×3 (09:01→20:32)
[2021-03-16] MEDS: MONTELUKAST 10 MG TAB PO SCH (09:44)
[2021-03-16] MEDS: CitaloPRAM (CeleXA) 20 MG TAB PO SCH (09:45)
[2021-03-16] MEDS: PANTOPRAZOLE 40MG TAB (PROTONIX) PO SCH ×2 (09:45→20:31)
[2021-03-16] MEDS: MULTIVITAMINS/MINERALS THERAP 1 TAB PO SCH (09:45)
[2021-03-16] MEDS: DICLOFENAC EPOLAMINE 1.3 % PATCH TOP SCH ×2 (09:47→20:32)
[2021-03-16] MEDS: NS 1,000 ML IV SCH ×2 (09:47→23:29)
[2021-03-16] MEDS: hydrOXYzine 10 MG TAB PO PRN ×2 (13:11→23:31)
--- NOTE | 2021-03-16 20:22 | IPNPDOC ---
Subjective Date Seen The patient was seen on 03/16/21. Subjective Chief Complaint/HPI Mr. Villarreal is a 70 year old male with alcoholic cirrhosis, pancytopenia and DM who presents with typical chest pain and fall. Overnight, patient was found to be anemic. Patient was transfused with 2u of blood today. He denied any dyspnea. He does not know if he had diarrhea, melena, or hematochezia. Patient has only had 1 incontinent bowel movement today. Objective Physical Examination General Exam: Positive: Alert, Cooperative Eye Exam: Negative: Sclera icteric ENT Exam: Positive: Atraumatic Neck Exam: Positive: Supple Chest Exam: Positive: Clear to auscultation Heart Exam: Positive: Bradycardic, Regular Rhythm Abdomen Exam: Positive: Normal bowel sounds, Soft Extremity Exam: Negative: Edema Psych Exam: Positive: Mood NL Assessment /Plan Assessment Mr. Villarreal is a 70 year old male with alcoholic cirrhosis, pancytopenia and DM who presents with typical chest pain and fall. Early this morning, patient was found to be anemic. Patient will be transfused with blood. Pending occult stool. Plan/VTE VTE Prophylaxis Ordered?: Yes Plan 1. Atypical chest pain -High sensitive troponin negative x2 -Echocardiogram demonstrated EF 65 to 70%, grade 2 diastolic dysfunction -Most likely musculoskeletal. Continue with supportive care 2. Pancytopenia with anemia -Heme/onc consulted for pancytopenia. 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 Acute kidney injury -Creatinine slowly improving -Continue with IVF 4. Cirrhosis -Continue with Lactulose 5. Hyperammonemia -Per son, patient at baseline, continue with lactulose 6. Sinus bradycardia -Hold nadolol 7. COPD -Not in exacerbation -Continue montelukast 8. DVT ppx -Discontinue Fondaparinux due to anemia requiring blood transfusion -Start SCD and TEDs Disposition: Pending improvement in hemoglobin VS, I&O, 24H, Fishbone Vital Signs/I&O Vital Signs Date Time Temp Pulse Resp B/P (MAP) Pulse Ox O2 Delivery O2 Flow Rate FiO2 03/16/21 17:20 98.1 58 18 124/58 100 Room Air I&O- Last 24 Hours up to 6 AM 03/16/21 06:00 Intake Total 2780 ml Output Total 1 ml Balance 2779 ml Laboratory Data 24H LABS Laboratory Tests 2 03/16/21 05:37: Nucleated Red Blood Cells % (auto) 0.0, Immature Platelet Fraction 4.5, Anion Gap 4L, Glomerular Filtration Rate 52.0, Calcium Level 9.0, Phosphorus Level 2.2#L, Magnesium Level 1.8, Total Bilirubin 0.3, Aspartate Amino Transf (AST/SGOT) 16, Alanine Aminotransferase (ALT/SGPT) 23, Alkaline Phosphatase 66, Total Protein 6.0L, Albumin 2.8L, Albumin/Globulin Ratio 0.9 CBC/BMP Laboratory Tests 03/16/21 05:37 LARRY RAY DO Mar 16, 2021 20:22
[2021-03-16] MEDS: traZODone 50 MG TAB PO SCH (20:31)
[2021-03-16] MEDS: PRAVASTATIN 20 MG TAB PO SCH (20:31)
[2021-03-16 21:15] LABS: HEMATOCRIT 31.2 % (42.0-52.0); MEAN CORPUSCULAR HEMOGLOBIN 22.5 pg (27.0-33.0); MEAN CORPUSCULAR HGB CONC 28.8 g/dl (32.0-36.5); WHITE BLOOD COUNT 3.5 10^3/uL (4.0-10.0)
[2021-03-16 21:17] LABS: PLATELET COUNT, AUTOMATED 53 10^3/uL (150-450)
[2021-03-16 21:43] LABS: CK-MB VALUE MASS < 1.0 NG/ML (<3.6); CPK CREATINE PHOSPHOKINASE 41 U/L (39-308); MB/CK RELATIVE INDEX 2.44 (< OR =4)
[2021-03-17] VITALS: BP 143/59
[2021-03-17 04:00] VITALS: BP 106/52
[2021-03-17 08:10] VITALS: BP 128/62
[2021-03-17 08:19] LABS: HEMATOCRIT 28.5 % (42.0-52.0); HEMOGLOBIN 8.6 g/dl (13.5-17.5); MEAN CORPUSCULAR HEMOGLOBIN 22.9 pg (27.0-33.0); MEAN CORPUSCULAR HGB CONC 30.2 g/dl (32.0-36.5); MEAN CORPUSCULAR VOLUME 75.8 fl (80.0-96.0); RED BLOOD COUNT 3.76 10^6/uL (4.30-6.10); WHITE BLOOD COUNT 3.3 10^3/uL (4.0-10.0)
[2021-03-17 08:22] LABS: PLATELET COUNT, AUTOMATED 52 10^3/uL (150-450)
[2021-03-17 08:57] LABS: BLOOD UREA NITROGEN 22 MG/DL (7-18); CALCIUM LEVEL 9.4 MG/DL (8.8-10.2); CARBON DIOXIDE LEVEL 22 MEQ/L (21-32); CHLORIDE LEVEL 108 MEQ/L (98-107); CREATININE FOR GFR 1.15 MG/DL (0.70-1.30); GLOMERULAR FILTRATION RATE > 60.0 (>42); GLUCOSE, FASTING 101 MG/DL (70-100); POTASSIUM SERUM 4.8 MEQ/L (3.5-5.1); SODIUM LEVEL 135 MEQ/L (136-145)
[2021-03-17] MEDS: MONTELUKAST 10 MG TAB PO SCH (09:23)
[2021-03-17] MEDS: PANTOPRAZOLE 40MG TAB (PROTONIX) PO SCH ×2 (09:23→20:52)
[2021-03-17] MEDS: CitaloPRAM (CeleXA) 20 MG TAB PO SCH (09:23)
[2021-03-17] MEDS: MULTIVITAMINS/MINERALS THERAP 1 TAB PO SCH (09:23)
[2021-03-17] MEDS: LACTULOSE 20 GM/30 ML SYRUP UD PO SCH ×3 (09:24→20:53)
[2021-03-17] MEDS: NS 1,000 ML IV SCH (10:14)
[2021-03-17] MEDS: DICLOFENAC EPOLAMINE 1.3 % PATCH TOP SCH ×2 (12:00→20:53)
[2021-03-17 12:10] VITALS: BP 126/78
[2021-03-17 15:57] VITALS: BP 125/74
--- NOTE | 2021-03-17 16:46 | ECGEPIP ---
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
[2021-03-17] MEDS: POLYVINYL ALCOHOL OPHTH SOLN 15 ML(LIQUITEARS) OU PRN (18:59)
[2021-03-17] MEDS: hydrOXYzine 10 MG TAB PO PRN (18:59)
[2021-03-17] MEDS ORDERED: oxyCODONE 5MG TAB PO PRN (19:00)
--- NOTE | 2021-03-17 19:53 | IPNPDOC ---
Subjective Date Seen The patient was seen on 03/17/21. Subjective Chief Complaint/HPI Mr. Villarreal is a 70 year old male with alcoholic cirrhosis, pancytopenia and DM who presents with typical chest pain and fall and eventually found to be anemic. Patient was seen this morning. Denied chest pain or dyspnea. He does feel itchy. Otherwise, continuing to monitor hemoglobin. I touched base with GI. If patient hemoglobin continues to drop, he may need an intervention. Objective Physical Examination General Exam: Positive: Alert, Cooperative Eye Exam: Negative: Sclera icteric ENT Exam: Positive: Atraumatic Neck Exam: Positive: Supple Chest Exam: Positive: Clear to auscultation Heart Exam: Positive: Rate Normal, Regular Rhythm Abdomen Exam: Positive: Normal bowel sounds, Soft Extremity Exam: Negative: Edema Psych Exam: Positive: Mood NL Assessment /Plan Assessment Mr. Villarreal is a 70 year old male with alcoholic cirrhosis, pancytopenia and DM who presents with typical chest pain and fall. 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 Patient was transfused with 2u pRBC. Pending occult stool. Plan/VTE VTE Prophylaxis Ordered?: Yes Plan 1. Atypical chest pain -High sensitive troponin negative x2 -Echocardiogram demonstrated EF 65 to 70%, grade 2 diastolic dysfunction -Most likely musculoskeletal. Continue with supportive care 2. Pancytopenia with anemia -Heme/onc consulted for pancytopenia. 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 Acute kidney injury -Creatinine slowly improving -Continue with IVF 4. Cirrhosis -Continue with Lactulose 5. Hyperammonemia -Per son, patient at baseline, continue with lactulose 6. Sinus bradycardia -Hold nadolol 7. COPD -Not in exacerbation -Continue montelukast 8. DVT ppx -Discontinue Fondaparinux due to anemia requiring blood transfusion -Start SCD and TEDs Disposition: Pending improvement in hemoglobin VS, I&O, 24H, Fishbone Vital Signs/I&O Vital Signs Date Time Temp Pulse Resp B/P (MAP) Pulse Ox O2 Delivery O2 Flow Rate FiO2 03/17/21 15:57 98.2 63 18 125/74 (91) 97 Room Air I&O- Last 24 Hours up to 6 AM 03/17/21 06:00 Intake Total 3267.5 ml Output Total 600 ml Balance 2667.5 ml Laboratory Data 24H LABS Laboratory Tests 2 03/16/21 21:01: Nucleated Red Blood Cells % (auto) 0.0, Total Creatine Kinase 41, Creatine Kinase MB < 1.0, Creatine Kinase MB Relative Index 2.44, Troponin I High Sensitivity 11.0 03/17/21 06:34: Bedside Glucose (Misc Panel) 104 03/17/21 07:48: Nucleated Red Blood Cells % (auto) 0.0, Immature Platelet Fraction 5.1, Anion Gap 5L, Glomerular Filtration Rate > 60.0, Calcium Level 9.4 CBC/BMP Laboratory Tests 03/16/21 21:01 03/17/21 07:48 LARRY RAY DO Mar 17, 2021 19:53
[2021-03-17] MEDS: traZODone 50 MG TAB PO SCH (20:52)
[2021-03-17] MEDS: PRAVASTATIN 20 MG TAB PO SCH (20:52)
[2021-03-17] MEDS: diphenhydrAMINE 25MG CAP PO PRN (20:55)
[2021-03-17] MEDS: IPRATROPIUM 0.5MG/ALBUTEROL 2.5MG INH SOL UD 3ML (DUONEB) NEB PRN (21:45)
[2021-03-17 23:00] VITALS: BP 128/74
[2021-03-18 05:56] LABS: HEMATOCRIT 28.2 % (42.0-52.0); HEMOGLOBIN 8.3 g/dl (13.5-17.5); MEAN CORPUSCULAR HEMOGLOBIN 22.7 pg (27.0-33.0); MEAN CORPUSCULAR HGB CONC 29.4 g/dl (32.0-36.5); MEAN CORPUSCULAR VOLUME 77.3 fl (80.0-96.0); RED BLOOD COUNT 3.65 10^6/uL (4.30-6.10); WHITE BLOOD COUNT 2.7 10^3/uL (4.0-10.0)
[2021-03-18 06:00] VITALS: BP 110/56
[2021-03-18 06:00] LABS: PLATELET COUNT, AUTOMATED 55 10^3/uL (150-450)
[2021-03-18 06:14] LABS: BLOOD UREA NITROGEN 20 MG/DL (7-18); CALCIUM LEVEL 9.2 MG/DL (8.8-10.2); CARBON DIOXIDE LEVEL 24 MEQ/L (21-32); CHLORIDE LEVEL 109 MEQ/L (98-107); GLOMERULAR FILTRATION RATE > 60.0 (>42); GLUCOSE, FASTING 95 MG/DL (70-100); POTASSIUM SERUM 4.7 MEQ/L (3.5-5.1); SODIUM LEVEL 137 MEQ/L (136-145)
[2021-03-18] MEDS: LACTULOSE 20 GM/30 ML SYRUP UD PO SCH ×3 (09:19→20:31)
[2021-03-18] MEDS: CitaloPRAM (CeleXA) 20 MG TAB PO SCH (09:21)
[2021-03-18] MEDS: PANTOPRAZOLE 40MG TAB (PROTONIX) PO SCH ×2 (09:21→20:30)
[2021-03-18] MEDS: MONTELUKAST 10 MG TAB PO SCH (09:21)
[2021-03-18] MEDS: DICLOFENAC EPOLAMINE 1.3 % PATCH TOP SCH ×2 (09:21→20:31)
[2021-03-18] MEDS: MULTIVITAMINS/MINERALS THERAP 1 TAB PO SCH (09:21)
[2021-03-18] MEDS: POLYVINYL ALCOHOL OPHTH SOLN 15 ML(LIQUITEARS) OU PRN (09:21)
[2021-03-18] MEDS ORDERED: MOM 30ML SUSPENSION UDC PO ONE (10:05)
[2021-03-18] MEDS: diphenhydrAMINE 25MG CAP PO PRN ×2 (10:31→20:30)
[2021-03-18 14:00] VITALS: BP 120/53
[2021-03-18] MEDS ORDERED: POLYETHYLENE GLYCOL (MIRALAX) 238GM BOTTLE PO ONE (17:00)
[2021-03-18 18:59] VITALS: BP 146/60
--- NOTE | 2021-03-18 19:07 | IPNPDOC ---
Subjective Date Seen The patient was seen on 03/18/21. Subjective Chief Complaint/HPI Mr. Villarreal is a 70 year old male with alcoholic cirrhosis, pancytopenia and DM who presents with typical chest pain and fall and eventually found to be anemic. Patient's hemoglobin continued to decline. This morning, patient denied any chest pain or dyspnea. He was agreeable to EGD and colonoscopy. He told me that he had a colonoscopy before in the past. I reached out to Dr. Hoff, plan for colonoscopy tomorrow Objective Physical Examination General Exam: Positive: Alert, Cooperative Eye Exam: Negative: Sclera icteric ENT Exam: Positive: Atraumatic Neck Exam: Positive: Supple Chest Exam: Positive: Clear to auscultation Heart Exam: Positive: Rate Normal, Regular Rhythm Abdomen Exam: Positive: Normal bowel sounds, Soft Extremity Exam: Negative: Edema Psych Exam: Positive: Mood NL Assessment /Plan Assessment Mr. Villarreal is a 70 year old male with alcoholic cirrhosis, pancytopenia and DM who presents with typical chest pain and fall. 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 Patient was transfused with 2u pRBC. In the past few days, hemoglobin has continued declined. Reach out to GI. Plan for scopes tomorrow Plan/VTE VTE Prophylaxis Ordered?: Yes Plan 1. Atypical chest pain -High sensitive troponin negative x2 -Echocardiogram demonstrated EF 65 to 70%, grade 2 diastolic dysfunction -Most likely musculoskeletal. Continue with supportive care 2. Pancytopenia with anemia -Heme/onc consulted for pancytopenia. 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 Acute kidney injury -Resolved 4. Cirrhosis -Continue with Lactulose 5. Hyperammonemia -Per son, patient at baseline, continue with lactulose 6. Sinus bradycardia -Hold nadolol 7. COPD -Not in exacerbation -Continue montelukast 8. DVT ppx -Discontinue Fondaparinux due to anemia requiring blood transfusion -Continue SCD and TEDs Disposition: Anticipating scope tomorrow VS, I&O, 24H, Fishbone Vital Signs/I&O Vital Signs Date Time Temp Pulse Resp B/P (MAP) Pulse Ox O2 Delivery O2 Flow Rate FiO2 03/18/21 18:59 98.8 69 18 146/60 (88) 97 Room Air I&O- Last 24 Hours up to 6 AM 03/18/21 06:00 Intake Total 640 ml Output Total 975 ml Balance -335 ml Laboratory Data 24H LABS Laboratory Tests 2 03/18/21 05:37: Nucleated Red Blood Cells % (auto) 0.0, Anion Gap 4L, Glomerular Filtration Rate > 60.0, Calcium Level 9.2 CBC/BMP Laboratory Tests 03/18/21 05:37 Microbiology Microbiology 03/18/21 Stool Occult Blood ([facility]) - Final, Complete LARRY RAY DO Mar 18, 2021 19:07
[2021-03-18] MEDS: IPRATROPIUM 0.5MG/ALBUTEROL 2.5MG INH SOL UD 3ML (DUONEB) NEB PRN (19:45)
[2021-03-18] MEDS: traZODone 50 MG TAB PO SCH (20:30)
[2021-03-18] MEDS: PRAVASTATIN 20 MG TAB PO SCH (20:30)
[2021-03-18 21:05] VITALS: BP 124/56
[2021-03-19] VITALS (7 sets, daily range): BP systolic 122–139; BP diastolic 47–78
[2021-03-19] MEDS ORDERED: POLYETHYLENE GLYCOL (MIRALAX) 238GM BOTTLE PO ONE (05:00)
[2021-03-19 08:21] LABS: HEMATOCRIT 29.6 % (42.0-52.0); HEMOGLOBIN 8.7 g/dl (13.5-17.5); MEAN CORPUSCULAR HEMOGLOBIN 23.1 pg (27.0-33.0); MEAN CORPUSCULAR HGB CONC 29.4 g/dl (32.0-36.5); MEAN CORPUSCULAR VOLUME 78.7 fl (80.0-96.0); RED BLOOD COUNT 3.76 10^6/uL (4.30-6.10)
[2021-03-19 08:22] LABS: PLATELET COUNT, AUTOMATED 52 10^3/uL (150-450)
[2021-03-19 08:49] LABS: BLOOD UREA NITROGEN 10 MG/DL (7-18); CARBON DIOXIDE LEVEL 25 MEQ/L (21-32); CHLORIDE LEVEL 108 MEQ/L (98-107); GLOMERULAR FILTRATION RATE > 60.0 (>42); GLUCOSE, FASTING 99 MG/DL (70-100); POTASSIUM SERUM 4.5 MEQ/L (3.5-5.1); SODIUM LEVEL 137 MEQ/L (136-145)
[2021-03-19] MEDS: MONTELUKAST 10 MG TAB PO SCH (08:56)
[2021-03-19] MEDS: PANTOPRAZOLE 40MG TAB (PROTONIX) PO SCH (08:56)
[2021-03-19] MEDS: MULTIVITAMINS/MINERALS THERAP 1 TAB PO SCH (08:57)
[2021-03-19] MEDS: LACTULOSE 20 GM/30 ML SYRUP UD PO SCH ×3 (08:57→21:16)
[2021-03-19] MEDS: DICLOFENAC EPOLAMINE 1.3 % PATCH TOP SCH ×2 (08:57→21:17)
[2021-03-19] MEDS: diphenhydrAMINE 25MG CAP PO PRN ×2 (08:57→21:16)
[2021-03-19] MEDS: CitaloPRAM (CeleXA) 20 MG TAB PO SCH (08:57)
--- NOTE | 2021-03-19 14:56 | IPNPDOC ---
Subjective Date Seen The patient was seen on 03/19/21. Subjective Chief Complaint/HPI Mr. Villarreal is a 70 year old male with alcoholic cirrhosis, pancytopenia and DM who presents with atypical chest pain and fall and eventually found to be anemic. This morning, patient denied any chest pain or dyspnea. I spoke with the . She had concerns as the patient recently had an EGD in June 2020. They did place clips. was concerned that these clips may cause problems. I passed this information along to Dr. Leigh. Later on, nurse notified me that patient's son had called and said that he also has a mesh and a foreign object is portal venous. Nurse tells me that the family will fax his medical record. Nurse called [facility] to inform them. Objective Physical Examination General Exam: Positive: Alert, Cooperative Eye Exam: Negative: Sclera icteric ENT Exam: Positive: Atraumatic Neck Exam: Positive: Supple Chest Exam: Positive: Clear to auscultation Heart Exam: Positive: Rate Normal, Regular Rhythm Abdomen Exam: Positive: Normal bowel sounds, Soft Extremity Exam: Negative: Edema Psych Exam: Positive: Mood NL Assessment /Plan Assessment Mr. Villarreal is a 70 year old male with alcoholic cirrhosis, pancytopenia and DM who presents with typical chest pain and fall. 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 Patient was transfused with 2u pRBC. In the past few days, hemoglobin has continued declined. Reach out to GI. Plan for scopes today. Plan/VTE VTE Prophylaxis Ordered?: Yes Plan 1. Atypical chest pain -High sensitive troponin negative x2 -Echocardiogram demonstrated EF 65 to 70%, grade 2 diastolic dysfunction -Most likely musculoskeletal. Continue with supportive care 2. Pancytopenia with anemia -Heme/onc consulted for pancytopenia. Pancytopenia most likely due to hypersplen ism -Transfused with 2u GI consulted, plan for scope today 3. Acute kidney injury -Resolved 4. Cirrhosis -Continue with Lactulose 5. Hyperammonemia -Resolved Continue lactulose 6. Sinus bradycardia -Hold nadolol 7. COPD -Not in exacerbation -Continue montelukast 8. DVT ppx -Discontinue Fondaparinux due to anemia requiring blood transfusion -Continue SCD and TEDs Disposition: Anticipating scope today VS, I&O, 24H, Fishbone Vital Signs/I&O Vital Signs Date Time Temp Pulse Resp B/P (MAP) Pulse Ox O2 Delivery O2 Flow Rate FiO2 03/19/21 06:00 98.5 57 19 139/63 (88) 99 03/18/21 21:05 Room Air I&O- Last 24 Hours up to 6 AM 03/19/21 06:00 Intake Total 1380 ml Output Total 150 ml Balance 1230 ml Laboratory Data 24H LABS Laboratory Tests 2 03/19/21 08:03: Nucleated Red Blood Cells % (auto) 0.0, Immature Platelet Fraction 2.5, Anion Gap 4L, Glomerular Filtration Rate > 60.0, Calcium Level 9.0 CBC/BMP Laboratory Tests 03/19/21 08:03 Microbiology Microbiology 03/18/21 Stool Occult Blood ([facility]) - Final, Complete LARRY RAY DO Mar 19, 2021 14:56
--- NOTE | 2021-03-19 15:01 | ROOR ---
Patient Name: Riki Villarreal Procedure Date: 03/19/2021 2:18 PM Date of : 1950 Age: 70 Room: [facility] Gender: Male Note Status: Finalized Procedure: Upper GI endoscopy Indications: Iron deficiency anemia Providers: Conner Leigh MD Referring MD: 1. NO/Unknown PCP 1. NO/Unknown PCP, Admin., 2. Inpatient 2. Inpatient Requesting Provider: Medicines: Monitored Anesthesia Care Complications: No immediate complications. Procedure: Pre-Anesthesia Assessment: - The heart rate, respiratory rate, oxygen saturations, blood pressure, adequacy of pulmonary ventilation, and response to care were monitored throughout the procedure. The Endoscope was introduced through the mouth, and advanced to the second part of duodenum. The upper GI endoscopy was accomplished without difficulty. Findings: Grade I varices were found in the lower third of the esophagus. (Varices are small today, primary prevention/eradication not indicated today) Moderate portal hypertensive gastropathy was found in the gastric fundus and in the gastric body. A large hiatal hernia was present. The examined duodenum was normal. Impression: - Grade I esophageal varices. (Varices are small today, primary prevention/eradication not indicated today) - Portal hypertensive gastropathy. - Large hiatal hernia. - Normal examined duodenum. - No specimens collected. Recommendation: - Start/continue a Non-selective Beta Avelina such as Propranolol or Nadolol, titrate to heart rate. - Use Prilosec (omeprazole) 40 mg PO daily. - Return to primary care physician as previously scheduled. Procedure Code(s): --- Professional --- 85276, Esophagogastroduodenoscopy, flexible, transoral; diagnostic, including collection of specimen(s) by brushing or washing, when performed (separate procedure) Diagnosis Code(s): --- Professional --- I85.00, Esophageal varices without bleeding K76.6, Portal hypertension K31.89, Other diseases of stomach and duodenum K44.9, Diaphragmatic hernia without obstruction or gangrene D50.9, Iron deficiency anemia, unspecified CPT copyright 2019 [employer]. All rights reserved. The codes documented in this report are preliminary and upon barrel marker review may be revised to meet current compliance requirements. Conner Leigh MD Conner Leigh MD 03/19/2021 3:01:01 PM Electronically signed by Conner Leigh MD Number of Addenda: 0 Note Initiated On: 03/19/2021 2:18 PM Estimated Blood Loss: Estimated blood loss: none.
--- NOTE | 2021-03-19 15:19 | ROOR ---
Patient Name: Riki Villarreal Procedure Date: 03/19/2021 2:35 PM Date of : 1950 Age: 70 Room: [facility] Gender: Male Note Status: Finalized Procedure: Colonoscopy Indications: Iron deficiency anemia Providers: Conner Leigh MD Referring MD: 2. Inpatient 2. Inpatient, 1. NO/Unknown PCP 1. NO/Unknown PCP, Admin. Requesting Provider: Medicines: Monitored Anesthesia Care Complications: No immediate complications. Procedure: Pre-Anesthesia Assessment: - The heart rate, respiratory rate, oxygen saturations, blood pressure, adequacy of pulmonary ventilation, and response to care were monitored throughout the procedure. The Colonoscope was introduced through the anus and advanced to 10 cm into the ileum. The colonoscopy was performed without difficulty. The patient tolerated the procedure well. The quality of the bowel preparation was good. Findings: The perianal and digital rectal examinations were normal. A 5 mm polyp was found in the ileocecal valve. The polyp was sessile. The polyp was removed with a cold snare. Resection and retrieval were complete. To prevent bleeding after the polypectomy, two hemostatic clips were successfully placed. Multiple diverticula were found in the sigmoid colon. Small Internal Hemorrhoids. The exam was otherwise normal throughout the examined colon. The terminal ileum appeared normal. Impression: - One 5 mm polyp at the ileocecal valve, removed with a cold snare. Resected and retrieved. Clips were placed. - Diverticulosis in the sigmoid colon. - Small Internal Hemorrhoids. - The colon is otherwise normal. - The examined portion of the ileum was normal. Recommendation: - Return to primary care physician as previously scheduled. Procedure Code(s): --- Professional --- 69603, Colonoscopy, flexible; with removal of tumor(s), polyp(s), or other lesion(s) by snare technique Diagnosis Code(s): --- Professional --- K57.30, Diverticulosis of large intestine without perforation or abscess without bleeding D50.9, Iron deficiency anemia, unspecified K63.5, Polyp of colon CPT copyright 2019 [employer]. All rights reserved. The codes documented in this report are preliminary and upon street sweeper review may be revised to meet current compliance requirements. Conner Leigh MD Conner Leigh MD 03/19/2021 3:19:27 PM Electronically signed by Conner Leigh MD Number of Addenda: 0 Note Initiated On: 03/19/2021 2:35 PM Estimated Blood Loss: Estimated blood loss: none.
[2021-03-19 17:13] LABS: HEPATITIS B CORE ANTIBODY IGM NEGATIVE (NEGATIVE); HEPATITIS B SURFACE ANTIGEN NEGATIVE (NEGATIVE); HEPATITIS C VIRUS ABY INDEX 0.1 INDEX (<0.8)
[2021-03-19] MEDS: traZODone 50 MG TAB PO SCH (21:16)
[2021-03-19] MEDS: PRAVASTATIN 20 MG TAB PO SCH (21:16)
[2021-03-20 02:00] VITALS: BP 119/60
[2021-03-20 06:00] VITALS: BP 124/58
[2021-03-20 06:54] LABS: BLOOD UREA NITROGEN 14 MG/DL (7-18); CALCIUM LEVEL 8.9 MG/DL (8.8-10.2); CARBON DIOXIDE LEVEL 17 MEQ/L (21-32); CHLORIDE LEVEL 111 MEQ/L (98-107); CREATININE FOR GFR 1.07 MG/DL (0.70-1.30); GLOMERULAR FILTRATION RATE > 60.0 (>42); GLUCOSE, FASTING 101 MG/DL (70-100); POTASSIUM SERUM 4.7 MEQ/L (3.5-5.1); SODIUM LEVEL 134 MEQ/L (136-145)
[2021-03-20] MEDS: DICLOFENAC EPOLAMINE 1.3 % PATCH TOP SCH (08:21)
[2021-03-20] MEDS: LACTULOSE 20 GM/30 ML SYRUP UD PO SCH (08:21)
[2021-03-20] MEDS: MONTELUKAST 10 MG TAB PO SCH (08:22)
[2021-03-20] MEDS: MULTIVITAMINS/MINERALS THERAP 1 TAB PO SCH (08:22)
[2021-03-20] MEDS: CitaloPRAM (CeleXA) 20 MG TAB PO SCH (08:22)
--- NOTE | 2021-03-20 08:23 | REP ---
INDICATION: possible cirrhosis, eval for hepatoma, splenomegaly, ascites. COMPARISON: Comparison is made with a chest CT images from March 14, 2021. TECHNIQUE: Complete abdominal sonography. FINDINGS: Scanning through the right upper quadrant of the abdomen demonstrates a normal sized gallbladder which shows diffuse mild gallbladder wall thickening and echogenic shadowing foci in its dependent portion consistent with cholelithiasis. There is mild ascites in the left upper quadrant and a small quantity of fluid is seen surrounding the gallbladder. The common bile duct is normal measuring 0.3 cm in greatest diameter. The liver is diffusely somewhat hyperechoic. Its margins mildly micro nodular consistent with history of cirrhosis. No focal liver lesion is seen. The pancreas is obscured by abdominal gas. Are Moderate degree of splenomegaly is observed with scanning in the left upper quadrant. Splenic parenchyma is homogeneous. No splenic mass lesion is seen. Splenic dimensions are 21.0 x 20.6 x 8.0 cm. Renal cortical echogenicity pattern is normal in contours are smooth bilaterally. No hydronephrosis is seen. No renal mass is observed. The right kidney measures 10.7 x 5.7 x 5.2 cm. Left renal dimensions are 11.0 x 4.5 x 4.6 cm. IMPRESSION: Findings consistent with cirrhosis. Cholelithiasis. Gallbladder wall thickening. Trace upper abdominal ascites. Moderate splenomegaly. <Electronically signed by Joshua Reed > 03/20/21 [id number]
[2021-03-20 08:28] LABS: HEMATOCRIT 26.6 % (42.0-52.0); HEMOGLOBIN 7.8 g/dl (13.5-17.5); MEAN CORPUSCULAR HEMOGLOBIN 23.1 pg (27.0-33.0); MEAN CORPUSCULAR HGB CONC 29.3 g/dl (32.0-36.5); MEAN CORPUSCULAR VOLUME 78.9 fl (80.0-96.0); RED BLOOD COUNT 3.37 10^6/uL (4.30-6.10); WHITE BLOOD COUNT 2.7 10^3/uL (4.0-10.0)
[2021-03-20 08:32] LABS: PLATELET COUNT, AUTOMATED 54 10^3/uL (150-450)
[2021-03-20] MEDS: IPRATROPIUM 0.5MG/ALBUTEROL 2.5MG INH SOL UD 3ML (DUONEB) NEB PRN (08:32)
[2021-03-20 08:37] LABS: HEMOGLOBIN A1c 5.3 %
[2021-03-20] MEDS ORDERED: PANTOPRAZOLE 40MG TAB (PROTONIX) PO SCH (09:00)
[2021-03-20 10:00] VITALS: BP 121/60
[2021-03-20 10:41] LABS: HEMATOCRIT 29.8 % (42.0-52.0); HEMOGLOBIN 8.6 g/dl (13.5-17.5); MEAN CORPUSCULAR HEMOGLOBIN 23.1 pg (27.0-33.0); MEAN CORPUSCULAR HGB CONC 28.9 g/dl (32.0-36.5); MEAN CORPUSCULAR VOLUME 80.1 fl (80.0-96.0); PLATELET COUNT, AUTOMATED 55 10^3/uL (150-450); RED BLOOD COUNT 3.72 10^6/uL (4.30-6.10); WHITE BLOOD COUNT 3.3 10^3/uL (4.0-10.0)
[2021-03-20] MEDS ORDERED: NADO20TA PO (12:57)
[2021-03-20 14:00] VITALS: BP 151/79
--- NOTE | 2021-03-20 18:09 | DS.PDOC ---
Discharge Summary General Date of Admission Mar 16, 2021 at 09:33 Date of Discharge Mar 20, 2021 Specialist/Consultants [facility], Dr. Leigh Discharge Summary PROCEDURES PERFORMED DURING STAY: EGD and colonoscopy with Dr. Leigh on 03/19/2021 ADMITTING DIAGNOSES: 1. Atypical chest pain 2. Pancytopenia with anemia 3. Acute kidney injury 4. Cirrhosis 5. Hyperammonemia 6. Sinus bradycardia 7. COPD DISCHARGE DIAGNOSES: 1. Atypical chest pain 2. Pancytopenia with anemia 3. Acute kidney injury 4. Cirrhosis 5. Hyperammonemia 6. Sinus bradycardia 7. COPD COMPLICATIONS/CHIEF COMPLAINT: Acute Kidney Injury,Anemia, Serosis. HISTORY OF PRESENT ILLNESS: Copied from admitting attendings H&P " 70-year-old male with a past medical history of alcoholic cirrhosis, anemia, thrombocytopenia, spleen infarction, COPD, obstructive sleep apnea, diabetes mellitus, GERD, hypertension presented to the emergency room department with complaints of left-sided chest pain. He is a poor historian and was accompanied by his son. Son reports patient fell on giving, which was unwitnessed and unclear why and since has been complaining of left-sided chest pain that is reproducible with movement. When asked patient about chest pain, he could not identify any aggravating factors but physically showed moving his left arm which aggravated the pain as well as palpating over the fifth midclavicular rib region. He could not recollect events around the fall. At this junction, he denied shortness of breath, abdominal pain, nausea, vomiting, problems with urination or bowel movements. In the emergency room department he was noted to have WBC count of 3.9, hemoglobin of 8.6, platelet count of 66. His sodium was 128, BUN/creatinine was 44/1.75. He was admitted for a chest pain rule out as well as pancytopenia acute kidney injury. " HOSPITAL COURSE: Patient had 3 negative troponins. This is unlikely ACS. Patient chest pain is most likely musculoskeletal. Patient's renal function improved with IV fluids. Ammonia down trended to 24. Patient was also bradycardic with a heart rate in the 40s. Nadolol 40 mg was discontinued. After a few days his heart rate came up to 75. Restarted nadolol at 20 mg daily. Otherwise, hemoglobin down trended to 6.7 on 03/16/2021. Patient was given 2 units of blood and he responded up to 9. But since then his hemoglobin has slowly down trended. GI was consulted for EGD and colonoscopy. Patient's notified us that patient has a history of GI bleed. In June 2020, patient was in [place] and had a clip placed to stop a bleed. On 03/19/2021 patient had an EGD which demonstrated grade 1 esophageal varices, portal hypertensive gastropathy, and large hiatal hernia. GI recommended a nonselective beta- leila and omeprazole. Patient also had a colonoscopy which demonstrated one 5 mm polyp at the ileocecal valve which was removed. Patient also had diverticulosis and small internal hemorrhoids. Patient may have had blood from his diverticulosis or hemorrhoids. Hemoglobin was checked twice today. His last hemoglobin was 8.6. Patient cleared physical therapy. He felt ready for home and was subsequently discharged home today. DISCHARGE MEDICATIONS: Please see below. ALLERGIES: Please see below. PHYSICAL EXAMINATION ON DISCHARGE: VITAL SIGNS: Please see below. GENERAL: Comfortable, in no apparent distress. HEENT: EOMI. NECK: Supple. RESPIRATORY: Lungs clear to auscultation bilaterally, no rales, wheeze or rhonchi. CARDIOVASCULAR: Regular rate and rhythm. ABDOMEN: Soft, nontender, no guarding or rebound tenderness. Normal bowel sounds. MUSCLE SKELETAL: Muscle strength 5/5 in all extremities. PSYCHOLOGICAL: Normal mood and affect LABORATORY DATA: Please see below. IMAGING: Radiologist report CT chest without contrast No acute mediastinal or pleuroparenchymal trauma/injury or acute pathology. Moderate to large paraesophageal gastric hiatal hernia No evidence for acute rib fracture. Mild compression deformities at T6 and T9 of indeterminate age. CT head without contrast Atrophy with periventricular leukomalacia and microvascular ischemic changes are appreciated. The ventricles and sulci are symmetric. Hugo-white differentiation is maintained. There is no evidence for acute intracranial hemorrhage, mass/mass effect, pathology or infarction. No extra-axial fluid collection. Calvarium is intact. Paranasal sinuses and mastoid air cells are clear. Renal ultrasound Normal renal ultrasound. No hydronephrosis. Abdominal ultrasound Findings consistent with cirrhosis. Cholelithiasis. Gallbladder wall thickening. Trace upper abdominal ascites. Moderate splenomegaly. PROGNOSIS: Good ACTIVITY: As tolerated. DIET: 2 g sodium diet DISCHARGE PLAN: Home. I have decreased the nadolol from 40 mg daily to 20 mg daily due to bradycardia. Patient should continue his Protonix. DISPOSITION: 01 Home, Self-Care. DISCHARGE INSTRUCTIONS: 1. Follow-up with your PCP within 7 days 2. Follow-up with GI in 1 week ITEMS TO FOLLOWUP ON ON OUTPATIENT: 1. Fluid status as patient is on torsemide and spironolactone 2. Heart rate as patient's nadolol was decreased in half. If patient is still bradycardic on 20 mg daily, may need to consider decreasing or discontinuing nadolol DISCHARGE CONDITION: Stable. Total time spent on discharge planning, discharge summary, and medication re conciliation: 45 minutes Vital Signs/I&Os Vital Signs Date Time Temp Pulse Resp B/P (MAP) Pulse Ox O2 Delivery O2 Flow Rate FiO2 03/20/21 14:00 97.4 61 19 151/79 (103) 96 Room Air I&O- Last 24 Hours up to 6 AM 03/20/21 06:00 Intake Total 1320 ml Output Total 0 ml Balance 1320 ml Laboratory Data Labs 24H Laboratory Tests 2 03/20/21 06:12: Anion Gap 6L, Glomerular Filtration Rate > 60.0, Calcium Level 8.9 03/20/21 06:33: Nucleated Red Blood Cells % (auto) 0.0, Estimated Mean Plasma Glucose 105, Hemoglobin A1c 5.3 03/20/21 10:26: Nucleated Red Blood Cells % (auto) 0.0, Immature Platelet Fraction 4.1 CBC/BMP Laboratory Tests 03/20/21 06:12 03/20/21 06:33 03/20/21 10:26 Microbiology Microbiology 03/18/21 Stool Occult Blood ([facility]) - Final, Complete Discharge Medications Scheduled Citalopram Hydrobromide (Citalopram HBr) 20 Mg Tablet, 20 MG PO DAILY, (Reported) Furosemide (Furosemide) 40 Mg Tablet, 40 MG PO DAILY, (Reported) Montelukast Sodium (Montelukast Sodium) 10 Mg Tablet, 10 MG PO QHS, (Reported) Multivit,Calc,Mins/Iron/Folic (Thera-M Tablet) 1 Each Tablet, 1 TAB PO DAILY, (Reported) Nadolol (Nadolol) 20 Mg Tablet, 20 MG PO DAILY Pantoprazole Sodium (Pantoprazole Sodium) 40 Mg Tablet.dr, 40 MG PO BID, (Reported) Pravastatin Sodium (Pravastatin Sodium) 40 Mg Tablet, 40 MG PO QHS, (Reported) Spironolactone (Spironolactone) 100 Mg Tablet, 100 MG PO DAILY, (Reported) Trazodone HCl (Trazodone HCl) 150 Mg Tablet, 150 MG PO QHS, (Reported) Scheduled PRN Hydroxyzine HCl (Hydroxyzine HCl) 10 Mg Tablet, 20 MG PO TID PRN for ITCHING, (Reported) Lactulose (Lactulose) 10 Gm/15 Ml Solution, 20 ML PO BID PRN for CONSTIPATION, (Reported) Allergies Coded Allergies: cephradine (Verified Allergy, Unknown, 03/14/21) LARRY RAY DO Mar 20, 2021 18:09
[2021-03-23 16:10] LABS: ANCA-ATYPICAL <1:20 titer (Neg:<1:20); ANTI-MITOCHONDRIAL ANTIBODY <20.0 Units (0.0-20.0); ANTINUCLEAR ANTIBODIES DIRECT Negative (Negative); CYTOPLASMIC NEUTROP AB ANCA-C <1:20 titer (Neg:<1:20); PERINUCLEAR AB ANCA-P <1:20 titer (Neg:<1:20)
== END 2021-03-20 16:32 | disposition home health service (06) | DRG 809 ==
LOC: M ED 14:08 → M ED INP 14:09 → M PCU 03-15 08:42 → INTOOBSV 03-16 09:33 → OBSVTOIN 03-16 09:33 → M MSPAV 03-17 17:46
PROVIDERS: ADMIT Internal Medicine; ATTEND Internal Medicine
PROC: 30233N1 Transfusion of Nonautologous Red Blood Cells into Peripheral Vein, Percutaneous Approach (ICD-10-PCS; principal; 2021-03-16)
PROC: 0DJ08ZZ Inspection of Upper Intestinal Tract, Via Natural or Artificial Opening Endoscopic (ICD-10-PCS; 2021-03-19)
PROC: 0DBB8ZX Excision of Ileum, Via Natural or Artificial Opening Endoscopic, Diagnostic (ICD-10-PCS; 2021-03-19)
DX: D61.818 Other pancytopenia (principal); N17.9 Acute kidney failure, unspecified; E72.20 Disorder of urea cycle metabolism, unspecified; E87.1 Hypo-osmolality and hyponatremia; I85.00 Esophageal varices without bleeding; K76.6 Portal hypertension; K70.30 Alcoholic cirrhosis of liver without ascites; D69.6 Thrombocytopenia, unspecified; J44.9 Chronic obstructive pulmonary disease, unspecified; G47.33 Obstructive sleep apnea (adult) (pediatric); E11.9 Type 2 diabetes mellitus without complications; K21.9 Gastro-esophageal reflux disease without esophagitis; I10 Essential (primary) hypertension; R07.89 Other chest pain; F10.11 Alcohol abuse, in remission; R00.1 Bradycardia, unspecified; D50.9 Iron deficiency anemia, unspecified; Z79.899 Other long term (current) drug therapy; Z88.1 Allergy status to other antibiotic agents; K44.9 Diaphragmatic hernia without obstruction or gangrene; K31.89 Other diseases of stomach and duodenum; K63.5 Polyp of colon

== ENCOUNTER → 2021-11-24 | Outpatient (CLI) | payer MEDICARE, OTHER ==
[~2021-11-24] MED LIST: CITA20TA6 PO; FURO20TA2 PO; FURO40TA2 PO; HYDR-643 PO; LACT20EL PO; MONT10TA97 PO; NADO20TA PO; NADO40TA PO; PANT-23 PO; PANT20TA6 PO; PRAV10TA3 PO; PRAV40TA2 PO; SING4CHW9 PO; SPIR100T3 PO; THERTAB21 PO; TRAZ-252 PO; TRAZ1TAB14 PO
== END ==
LOC: M LAB 16:06
PROVIDERS: ATTEND Internal Medicine Gastroenterology
DX: D50.9 Iron deficiency anemia, unspecified (principal)

== ENCOUNTER → 2021-12-17 | Outpatient (CLI) | payer OTHER ==
[~2021-12-17] MED LIST changes: +E-Z-PAQUE 96% w/w SUSP 176GM BTL As Ordered ONE
== END ==
LOC: M RAD 07:50
PROVIDERS: ATTEND Internal Medicine Gastroenterology
DX: D50.9 Iron deficiency anemia, unspecified (principal)

== ENCOUNTER → 2022-03-18 | Outpatient (CLI) | payer OTHER ==
[~2022-03-18] MED LIST changes: -E-Z-PAQUE 96% w/w SUSP 176GM BTL As Ordered ONE
== END ==
LOC: M RAD 08:44
PROVIDERS: ATTEND Physician Assistant
DX: Z12.2 Encounter for screening for malignant neoplasm of respiratory organs (principal); Z87.891 Personal history of nicotine dependence; K44.9 Diaphragmatic hernia without obstruction or gangrene

== ENCOUNTER → 2022-05-23 | Outpatient (CLI) | payer OTHER ==
[~2022-05-23] MED LIST changes: +ALDA50TA2 PO; +FERR324T2 PO; +FLUT1BLS3 IH; +LASI20TA3 PO; +SUCR1TAB56 PO
[2022-05-23 11:22] LABS: BASO % 0.9 % (0.0-1.0); EOS # 0.1 10^3/uL (0.0-0.5); EOS % 2.7 % (0.0-3.0); HEMATOCRIT 35.1 % (42.0-52.0); HEMOGLOBIN 10.7 g/dl (13.5-17.5); LYMPH # 0.3 10^3/uL (1.5-5.0); LYMPH % 12.5 % (24.0-44.0); MEAN CORPUSCULAR HEMOGLOBIN 29.2 pg (27.0-33.0); MEAN CORPUSCULAR HGB CONC 30.5 g/dl (32.0-36.5); MEAN CORPUSCULAR VOLUME 95.9 fl (80.0-96.0); MONO # 0.2 10^3/uL (0.0-0.8); MONO % 9.8 % (2.0-8.0); NEUTROPHILS # 1.7 10^3/uL (1.5-8.5); NEUTROPHILS % 73.7 % (36.0-66.0); RED BLOOD COUNT 3.66 10^6/uL (4.30-6.10); WHITE BLOOD COUNT 2.2 10^3/uL (4.0-10.0)
[2022-05-23 11:23] LABS: PLATELET COUNT, AUTOMATED 49 10^3/uL (150-450)
[2022-05-23 11:33] LABS: INR 1.31; PROTHROMBIN TIME 16.5 SECONDS (12.5-14.5)
[2022-05-23 11:48] LABS: ALBUMIN 3.4 G/DL (3.2-5.2); BILIRUBIN,TOTAL 0.8 MG/DL (0.3-1.2); CREATININE FOR GFR 1.3 MG/DL (0.70-1.30); GLOMERULAR FILTRATION RATE 57.8 (>42); POTASSIUM SERUM 4.3 MMOL/L (3.5-5.1); TOTAL PROTEIN 6.7 G/DL (5.7-8.2)
== END ==
LOC: M LAB 10:47
PROVIDERS: ATTEND Internal Medicine Gastroenterology
DX: K74.60 Unspecified cirrhosis of liver (principal)

== ENCOUNTER → 2022-05-27 | Outpatient (CLI) | payer MEDICARE, OTHER ==
[~2022-05-27] MED LIST changes: +PROHANCE 279.3MG/ML 5ML VIAL ONE
== END ==
LOC: M PLAIMG 12:12
PROVIDERS: ATTEND Internal Medicine Gastroenterology
DX: K74.60 Unspecified cirrhosis of liver (principal); R16.2 Hepatomegaly with splenomegaly, not elsewhere classified; R18.8 Other ascites; K44.9 Diaphragmatic hernia without obstruction or gangrene; R59.9 Enlarged lymph nodes, unspecified
CPT/HCPCS: 74183; A9576

== ENCOUNTER → 2022-05-30 | Outpatient (CLI) | payer MEDICARE, OTHER ==
[~2022-05-30] MED LIST changes: -PROHANCE 279.3MG/ML 5ML VIAL ONE
[2022-05-30 15:09] VITALS: BP 139/63
[2022-05-30 15:24] VITALS: BP 138/65
[2022-05-30 15:33] LABS: SOURCE, BODY FLUID ASCITES
[2022-05-30 15:34] LABS: APPEARANCE, BODY FLUID HAZY (CLEAR); ASCITES FL COLOR PALE YELLOW (COLORLESS)
[2022-05-30 15:43] LABS: SOURCE, BODY FLUID ALBUMIN ASCITES
[2022-05-30 15:51] LABS: SOURCE, BODY FLUID TOT PROTEIN ASCITES; TOTAL PROTEIN, BODY FLUID < 2.0 G/DL (NOT ESTABLISHED)
== END ==
LOC: M IRPRO 13:34
PROVIDERS: ATTEND Internal Medicine Gastroenterology
DX: R18.8 Other ascites (principal); K74.60 Unspecified cirrhosis of liver
CPT/HCPCS: 49083; 82042; 84157; 88108; 88305; 88313; 89051; 96365; P9047

== ENCOUNTER → 2022-07-13 | Outpatient (CLI) | payer OTHER, MEDICARE | LOC: M LABSMTC 10:30 | PROVIDERS: ATTEND Anesthesiology | DX: Z01.812 Encounter for preprocedural laboratory examination (principal); Z20.822 Contact with and (suspected) exposure to COVID-19 ==

== ENCOUNTER 2022-07-18 12:53 | Day surgery (SDC) | payer MEDICARE, OTHER ==
[~2022-07-18] VITALS: Ht 172.7 cm; Wt 0.5 kg
[~2022-07-18 12:53] MED LIST changes: +MONT4TAB2 PO; +NS 1,000 ML IV ONE; -SING4CHW9 PO
[2022-07-18] MEDS ORDERED: propofoL 500 MG/50 ML VIAL As Ordered ONE (14:43)
[2022-07-18] MEDS ORDERED: LIDOCAINE 2% 100MG/5ML SDV (FOR ANES.) As Ordered ONE (14:43)
[2022-07-18] MEDS ORDERED: fentaNYL 100 MCG/2 ML INJECTION As Ordered ONE (14:43)
[2022-07-18 15:25] VITALS: BP 153/70
== END 2022-07-18 15:36 | disposition home or self-care (01) ==
LOC: M OPP 12:53
PROVIDERS: ATTEND Internal Medicine Gastroenterology
DX: K44.9 Diaphragmatic hernia without obstruction or gangrene (principal); K31.89 Other diseases of stomach and duodenum; K76.6 Portal hypertension; I85.00 Esophageal varices without bleeding; D50.9 Iron deficiency anemia, unspecified; J44.9 Chronic obstructive pulmonary disease, unspecified; G47.33 Obstructive sleep apnea (adult) (pediatric); Z79.02 Long term (current) use of antithrombotics/antiplatelets; Z79.51 Long term (current) use of inhaled steroids; Z79.899 Other long term (current) drug therapy
CPT/HCPCS: 43235; J3010